=== PATIENT | male | born 1985 | race African-American/Black ===

== ENCOUNTER 2016-10-25 15:16 | Emergency (ER) | payer OTHER ==
[~2016-10-25] VITALS: Ht 182.9 cm; Wt 63.7 kg
[2016-10-25 16:20] LABS: EOSINOPHIL (%) 0.8 % (0-5); EOSINOPHIL COUNT 0.1 K/uL (0-0.3); HEMATOCRIT 41.9 % (38.0-50.0); IMMATURE GRANULOCYTE (%) 0.2 % (0.0-0.7); LYMPHOCYTE COUNT 2.6 K/uL (1.0-2.8); MCH 30.6 PG (29.0-34.0); MCHC 33.7 G/DL (30.0-36.0); MCV 90.9 FL (86-99); MEAN PLAT.VOLUME 10.6 uM^3 (9.0-12.4); MONOCYTE COUNT 0.4 K/uL (0-0.8); NEUTROPHIL (%) 49.3 % (45-76); PLATELET COUNT 208 K/uL (156-360); RBC DIS.WIDTH-CV 13.8 % (11.8-14.6); RBC DIS.WIDTH-SD 46.5 % (39-53); RED BLOOD COUNT 4.61 M/uL (4.00-5.50)
[2016-10-25 16:28] LABS: CHLORIDE 105 mEq/L (99-109); POTASSIUM 3.9 mEq/L (3.7-5.4); SODIUM 139 mEq/L (136-147)
[2016-10-25 16:30] LABS: GLUCOSE 93 mg/dL (70-99)
[2016-10-25 16:31] LABS: ANION GAP 9 MEQ/L (2-14)
[2016-10-25 16:33] LABS: SERUM ETHYL ALCOHOL < 10 mg/dL
[2016-10-25 16:34] LABS: GFR ESTIMATE (CALCULATED) > 59 mL/min/
[2016-10-25 16:35] LABS: UREA NITROGEN (BUN) 13 mg/dL (9-23)
[2016-10-25 16:37] LABS: SALICYLATE < 5.0 MG/DL (15-30)
[2016-10-25 17:08] VITALS: BP 124/74
== END 2016-10-25 17:11 | disposition home or self-care (01) ==
LOC: EME 15:16
PROVIDERS: Emergency Medicine
DX: T65.91XA Toxic effect of unspecified substance, accidental (unintentional), initial encounter (principal); R40.0 Somnolence; I10 Essential (primary) hypertension; G89.29 Other chronic pain; M54.9 Dorsalgia, unspecified; F17.200 Nicotine dependence, unspecified, uncomplicated
CPT/HCPCS: 80048; 85025; 99281; 99283; G0480